=== PATIENT | female | born 1980 | race Caucasian/White ===

== ENCOUNTER 2024-03-15 18:18 | Emergency (ER) | payer BC ==
[~2024-03-15] VITALS: Ht 154.9 cm; Wt 67.1 kg
[2024-03-15 18:58] VITALS: BP_SYST 110; PULSE 90; RESP 18; TEMP 97.8; O2SAT 99
[2024-03-15] MEDS ORDERED: AUG875 PO (19:57)
[2024-03-15] MEDS: DIPHTH,PERTUSS(ACELL),TET VAC 0.5 ML VIAL (Tdap) I.M. ONE (20:05)
[2024-03-15 20:24] VITALS: BP_SYST 110; PULSE 90; RESP 18; TEMP 97.8; O2SAT 99
== END 2024-03-15 20:07 | disposition home or self-care (01) ==
LOC: SED 18:18
DX: S41.152A Open bite of left upper arm, initial encounter (principal); S41.151A Open bite of right upper arm, initial encounter; S81.852A Open bite, left lower leg, initial encounter; S81.851A Open bite, right lower leg, initial encounter; Z23 Encounter for immunization; W54.0XXA Bitten by dog, initial encounter; Y93.89 Activity, other specified; Y92.89 Other specified places as the place of occurrence of the external cause; Y99.8 Other external cause status
CPT/HCPCS: 90715; 99283